=== PATIENT | male | born 1975 | race Caucasian/White ===

== ENCOUNTER 2020-08-24 21:31 | Emergency (ER) | payer OTHER, SELFPAY ==
--- NOTE | 2020-08-24 | ECG_ITS ---
Test Reason : CP Blood Pressure : / mmHG Vent. Rate : 063 BPM Atrial Rate : 063 BPM P-R Int : 164 ms QRS Dur : 084 ms QT Int : 376 ms P-R-T Axes : 014 011 032 degrees QTc Int : 384 ms Normal sinus rhythm Normal ECG When compared with ECG of 07-JAN-2020 21:55, No significant change was found Referred By: Generic ED Physician Electronically Signed By:Bennett Randhawa
[2020-08-24 21:37] VITALS: BP 131/88; PULSE 63; RESP 18; TEMP 36.7; O2SAT 99; BMI 30.4
--- NOTE | 2020-08-24 21:57 | PC.NURSE ---
labs drawn, ekg done, on monitor nsr, nonprod cough, iv to left ac 20g with no complications. provider made aware of pt arrival. pt has a right upper chest soft lump that appeared approx 4 days ago with coughing.
--- NOTE | 2020-08-24 21:58 | XR_ITS ---
EXAMINATION: XR CHEST CLINICAL INFORMATION: Chest pain COMPARISON: 01/07/2020 TECHNIQUE: Frontal view of the chest was obtained. FINDINGS: No significant abnormality is noted involving the heart, lungs, mediastinum, bony thorax or soft tissues. XR/XR chest 1V IMPRESSION: Unremarkable examination.
[2020-08-24 22:00] VITALS: BP 122/80; PULSE 61; RESP 18; O2SAT 100
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
[2020-08-24 22:10] LABS: MANUAL DIFF FLAG NO
[2020-08-24 22:14] LABS: Basophils Percent Auto 0.3 % (0-2); Eosinophils Absolute Auto 0.2 X10*3/uL (0.0-0.4); Eosinophils Percent Auto 1.5 % (0-4); Hematocrit 46.7 % (42-52); Hemoglobin 15.8 g/dl (14.0-18.0); Imm Gran Abs Auto 0.03 X10*3/uL (0.00-0.03); Imm Gran Pct Auto 0.3 % (0.0-0.4); Lymphocytes Percent Auto 29.4 % (20-40); Mean Corpuscular HGB Conc 33.8 g/dl (31.0-36.0); Mean Corpuscular Hemoglobin 29.2 pg (27.0-33.0); Mean Corpuscular Volume 86.2 fL (80-98); Mean Platelet Volume 11.8 fL (9.4-12.4); Monocytes Absolute Auto 0.7 X10*3/uL (0.1-1.2); Monocytes Percent Auto 6.7 % (2-11); Neutrophils Absolute Auto 6.2 X10*3/uL (2.0-8.3); Neutrophils Percent Auto 61.8 % (45-73); Platelet Count 155 X10*3/uL (160-400); Red Blood Count 5.42 X10*6/uL (4.60-5.80); Red Cell Distribution Width 12.4 % (11.0-16.0); White Blood Count 10.1 X10*3/uL (4.8-10.8)
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
[2020-08-24 23:01] LABS: Ethanol < 10 mg/dL
[2020-08-24 23:04] LABS: Alanine Aminotransferase 17 U/L (0-40); Albumin Level 4.4 g/dL (3.5-5.0); Alkaline Phosphatase 51 U/L (39-117); Anion Gap 11 (12-20); Aspartate Amino Transferase 17 U/L (5-37); Bilirubin Total 0.6 mg/dL (0.0-1.0); Blood Urea Nitrogen 13 mg/dL (9-16); Calcium 9.1 mg/dL (8.4-10.2); Carbon Dioxide 30 mmol/L (22-29); Chloride 102 mmol/L (96-108); Creatinine Clr Calc Pharmacy 92.7; Estimated Glomerular Filt Rate > 60; Glucose Random 78 mg/dL (60-115); Lipase 49 U/L (8-78); Potassium 4.2 mmol/l (3.3-5.1); Sodium 139 mmol/L (135-145); Total Protein 7.4 g/dL (6.5-8.0)
[2020-08-24 23:11] LABS: Glucose Urine UA NEG (NEG); Leukocyte Esterase Urine NEG (NEG); Nitrite Urine NEG (NEG); PH 6.5 (5.0-8.0); Specific Gravity - Urine 1.015 (1.005-1.025); Urine Blood NEG (NEG); Urine Ketones NEG (NEG); Urine Protein NEG (NEG-TRACE)
[2020-08-24 23:13] LABS: Appearance Urine CLEAR; Color Urine YELLOW
[2020-08-24 23:35] LABS: Amphetamine Screen Urine Not Detected (Not Detect); Barbiturates, Urine Not Detected (Not Detect); Benzodiazepines Screen Urine Not Detected (Not Detect); Cannabinoid Screen Urine Not Detected (Not Detect); Cocaine Screen Urine Not Detected (Not Detect); Opiate Screen Urine Not Detected (Not Detect); Phencyclidine Screen Urine Not Detected (Not Detect)
[2020-08-25] VITALS: BP 116/79; PULSE 57; RESP 18; O2SAT 98
[2020-08-25 01:07] VITALS: BP 119/84; PULSE 57; RESP 18; O2SAT 98
== END 2020-08-25 01:09 | disposition home or self-care (01) ==
PROVIDERS: Student in an Organized Health Care Education/Training Program; Emergency Provider Emergency Medicine
DX: R07.89 Other chest pain (principal); R93.2 Abnormal findings on diagnostic imaging of liver and biliary tract; K75.3 Granulomatous hepatitis, not elsewhere classified; Z87.828 Personal history of other (healed) physical injury and trauma
CPT/HCPCS: 36415; 71045; 71250; 80053; 80307; 80320; 81003; 83690; 85025; 93005; 99284

== ENCOUNTER 2021-04-14 15:33 | Emergency (ER) | payer OTHER, SELFPAY ==
--- NOTE | ~2021-04-14 | XR_ITS ---
EXAMINATION: XR CHEST CLINICAL INFORMATION: Fever, shortness of breath, upper respiratory infection COMPARISON: 08/24/2020 TECHNIQUE: Frontal view of the chest was obtained. FINDINGS: Lungs are well-inflated and clear. Trachea is midline in position. No interstitial disease, consolidation or mass. No pulmonary edema, pleural effusion or pneumothorax. Cardiac silhouette and pulmonary vessels are normal in size. The mediastinum and destin have normal contour. The visualized bones, and upper abdomen, are unremarkable. XR/XR chest 1V IMPRESSION: No evidence of pneumonia. No acute cardiopulmonary abnormality.
[2021-04-14 15:51] VITALS: BP 145/85; PULSE 103; RESP 20; TEMP 38.2; O2SAT 97; BMI 30.8
[2021-04-14 16:07] VITALS: BP 133/88; PULSE 87; RESP 16; TEMP 37.4; O2SAT 97
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
[2021-04-14 16:49] LABS: COVID-19 Test Positive (Negative)
[2021-04-14] MEDS: Acetaminophen 325 MG TABLET 650 MG PO (17:48)
== END 2021-04-14 18:29 | disposition home or self-care (01) ==
PROVIDERS: Emergency Provider Emergency Medicine
DX: U07.1 COVID-19 (principal); R50.9 Fever, unspecified; R06.02 Shortness of breath; Z79.899 Other long term (current) drug therapy
CPT/HCPCS: 36415; 71045; 87635; 99283

== ENCOUNTER 2021-04-30 14:48 | Outpatient (REF) | payer OTHER, SELFPAY | END 2021-04-30 14:49 | disposition home or self-care (01) | LOC: HO.LAB 14:48 | PROVIDERS: Visit Provider Internal Medicine | DX: Z20.822 Contact with and (suspected) exposure to COVID-19 (principal) | CPT/HCPCS: U0003; U0005 ==

== ENCOUNTER 2024-09-18 23:15 | Emergency (ER) | payer OTHER, SELFPAY ==
--- NOTE | ~2024-09-18 | XR_ITS ---
CLINICAL HISTORY: cough 2 view chest x-ray Comparison: Chest x-ray from 04/14/2021 Findings: No consolidation, pneumothorax, or pleural effusion. Imaged mediastinum is unchanged. No definite osseous change in the [id number]-phri. IMPRESSION: No consolidation This document has been electronically signed by: Suman Deras MD on 09/19/2024 00:54:49
--- NOTE | 2024-09-19 00:35 | MHC.EDTECH ---
Patient brought into triage,strep,and sars/flu/rsv obtained and sent to lab.
[2024-09-19 00:55] LABS: Strep A Nucleic Acid Negative (Negative)
[2024-09-19 00:56] LABS: IDNOW Serial# 58CA691E
--- NOTE | 2024-09-19 01:11 | ED.FEVER ---
HPI - Fever General Chief Complaint: General Medical Stated Complaint: fever Time Seen by Provider: 09/19/24 01:14 Source: patient and old records reviewed Mode of arrival: ambulatory Limitations: no limitations History of Present Illness ED Provider: CHAIM HUERTAS Narrative: 49 yo male otherwise healthy here with c/o fevers, sore throat, ulcers and pain under his tongue. He has been taking tylenol but no relief. He denies travel, sick contacts. No n/v/d. No other symptoms. No one else has this. MD elicited complaint: fever and other (sore throat) Onset (ago): day(s) (2) Exacerbating factors: swallowing Relieving factors: acetaminophen Associated symptoms: chills and sore throat Treatments prior to arrival fever: acetaminophen Related Data Previous Rx's ?Medication ?Instructions ?Recorded [id number]-[id number]-[id number] 7.5 ml PO Q4-6H PRN cold symptoms 04/14/21 2 mg-30 mg-10 mg/5 mL oral syrup #473 mL (Bromfed DM) ibuprofen 600 mg tablet 600 mg PO Q6H PRN fever or pain 04/14/21 #30 tabs amoxicillin 875 mg-potassium 1 tab PO BID #19 tabs 09/19/24 clavulanate 125 mg tablet ibuprofen 600 mg tablet 600 mg PO Q6H PRN pain or fever 09/19/24 #30 tabs Allergies Allergy/AdvReac Type Severity Reaction Status Date / Time No Known Allergies Allergy Unverified 09/19/24 01:14 [No Known Allergies*] Review of Systems Review of Systems: Constitutional : pos Fever, pos Chills, No Fatigue ENT/Mouth : pos sore throat, No Rhinorrhea Eyes: No Eye Pain, No Swelling, No Redness Cardiovascular : No Chest Pain, No SOB, No Dyspnea on Exertion Respiratory : No Cough, No Sputum Gastrointestinal : No Nausea, No Vomiting, No Diarrhea, No abdominal Pain Genitourinary : No Dysuria, No Urinary Frequency, No Hematuria, Musculoskeletal : No joint pain, No Myalgias, No Joint Swelling Skin : No Skin Lesions, No rash Neuro : No Weakness, No Numbness, No Dizziness, no Headache All other systems reviewed and are negative PMFSH Past Medical History Attestation statement: The following information was validated with the patient. Source: old records reviewed Medical History (Updated 09/19/24 @ 01:23 by Tram Rasmussen DO) COVID-19 Social History Social History (Updated 09/19/24 @ 01:23 by Tram Rasmussen DO) Alcohol intake: never Patient Tobacco Use Status: Never used Tobacco Advance Directives: No Advance Directives Information Provided: Yes Physical Exam Vital Signs: Vital Signs: Last Vital Signs Temp 100.6 F H 09/19/24 01:12 Pulse 113 H 09/19/24 01:12 Resp 18 09/19/24 01:12 BP 149/90 H 09/19/24 01:12 Pulse Ox 99 09/19/24 01:12 O2 Del Method Room Air 09/19/24 01:12 BMI result Body Mass Index 31.7 Appearance: Alert. Oriented X3. No acute distress. Eyes: Pupils equal, round and reactive to light. ENT: Pharynx no trismus tonsils and posterior pharynx are normal, under tongue he has 3 yellow apthous ulcers, tongue it not swollen, no submandibular swelling or pain Neck: Normal inspection. Neck supple. CVS: Normal heart rate and rhythm. Pulses normal. Respiratory: No respiratory distress. Breath sounds normal. Abdomen: Soft and non-tender. Skin: Skin warm and dry. Normal skin color. Extremities: No lower extremity edema. Neuro: Oriented X 3. No motor deficit. No sensory deficit. CN2-12 intact Medications Administered Discontinued Medications Generic Name Dose Route Start Last Admin Trade Name Freq PRN Reason Stop Dose Admin Amoxicillin/Clavulanate Potassium 875 mg 09/19/24 01:15 09/19/24 01:20 Amoxicillin/Potassium Clav 875 Mg Tablet PO 09/19/24 01:16 875 mg ONCE ONE Administration Ibuprofen 600 mg 09/19/24 01:15 09/19/24 01:20 Ibuprofen 600 Mg Tablet PO 09/19/24 01:16 600 mg ONCE ONE Administration Medical Decision Making Medical Decision Making MDM Narrative: 49 yo male otherwise healthy here with c/o sore throat and has fevers/3 yellow clear ulcers under tongue with mild swelling this could just be viral but given the swelling there is concern for secondary sialoadenitis - at this time will obtain swabs, start on home remedy for ulcers - start on augmentin, motrin. No signs of airway swelling, submandibular swelling or compromise. Differential Diagnosis Differential Diagnoses: The differential diagnosis associated with the presentation includes URI, viral syndrome, sialoadenitis Lab Data [facility] Lab Attestation statement: I reviewed the patient's lab results. Labs: Lab Results 09/19/24 Range/Units 00:31 Influenza Type A (PCR) NEGATIVE (Negative) Influenza Type B (PCR) NEGATIVE (Negative) RSV RNA Qual (PCR) NEGATIVE (Negative) SARS-CoV-2 RNA (RT-PCR) NEGATIVE (Negative) S. pyogenes GrpA ALBERTO Negative (Negative) Prescription Management I considered prescription management with: Antibiotic and Other Discharge Plan Discharge Clinical Impression: Aphthous ulcer, Acute sialoadenitis Patient Disposition: Home, Self-Care Instructions: Sialoadenitis (ED), Oral Mucositis (ED) Additional Instructions: return for worsening swelling unable to open mouth unable to swallow or any other concerns stay hydrated take medications as prescribed drink plenty of fluids, sucking on pops to keep saliva going might be helpful HOME REMEDIES FOR [place] SORES - SWISHING PEPTO BISMOL AROUND IN MOUTH THREE TIMES A DAY DO NOT SWALLOW - SPIT OUT USING A TEASPOON OF BAKING SODA, 2 TEASPOONS OF SALT IN WARM WATER RINSE AND SPIT 4 TIMES A DAY NEGATIVE FOR COVID, FLU, RSV, STREP THROAT Prescriptions: New amoxicillin-pot clavulanate 875-125 mg tablet 1 tab PO BID Qty: 19 0RF ibuprofen 600 mg tablet 600 mg PO Q6H PRN (Reason: pain or fever) Qty: 30 0RF No Action ibuprofen 600 mg tablet 600 mg PO Q6H PRN (Reason: fever or pain) Qty: 30 0RF [id number] [Bromfed DM] 2-30-10 mg/5 mL syrup 7.5 ml PO Q4-6H PRN (Reason: cold symptoms) Qty: 473 0RF Stand Alone Forms: Work/School Release Print Language: [place]
[2024-09-19 01:12] VITALS: BP 149/90; PULSE 113; RESP 18; TEMP 38.1; O2SAT 99; BMI 31.7
[2024-09-19 01:17] LABS: Influenza A PCR NEGATIVE (Negative); Influenza B PCR NEGATIVE (Negative); Resp Syncy Virus RNA Qual PCR NEGATIVE (Negative); SARS COV2 PCR INHOUSE NEGATIVE (Negative)
[2024-09-19] MEDS: Ibuprofen 600 MG TABLET PO (01:20)
[2024-09-19] MEDS: Amoxicillin/Potassium Clav 875 MG TABLET PO (01:20)
[2024-09-19 05:09] VITALS: BP 149/90; PULSE 113; RESP 18; TEMP 38.1; O2SAT 99
== END 2024-09-19 01:25 | disposition home or self-care (01) ==
PROVIDERS: Emergency Provider Emergency Medicine
DX: K12.0 Recurrent oral aphthae (principal); K11.21 Acute sialoadenitis; R50.9 Fever, unspecified; R05.9 Cough, unspecified; J02.9 Acute pharyngitis, unspecified; Z03.818 Encounter for observation for suspected exposure to other biological agents ruled out
CPT/HCPCS: 0241U; 71046; 87651; 99283

== ENCOUNTER → 2024-09-19 00:21 | Outpatient (BNV) | payer OTHER, SELFPAY | PROVIDERS: Visit Provider Radiology Neuroradiology | DX: R05.9 Cough, unspecified (principal) | CPT/HCPCS: 71046 ==